=== PATIENT | male | born 1935 | race Caucasian/White ===

== ENCOUNTER 2016-09-18 09:52 | Emergency (ER) | payer MEDICARE ==
[2016-09-18 10:40] VITALS: BP 161/59
--- NOTE | 2016-09-18 10:57 | UC ---
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 Has had balance difficulties since CVA now with frequent falls his PMD has ordered PT fell backwards landing on buttock about 4 days ago initially had a painful "lump" now with bruising which has been extensive no back/neck or head pain - History Of Current Complaint Chief Complaint: UCGeneralIllness Stated Complaint: PT FELL 09/14 HAS SEVERE BRUISING Time Seen by Provider: 09/18/16 10:40 Hx Obtained From: Patient Onset/Duration: Sudden Onset, Lasting Days Timing: Constant Severity Initially: Moderate Severity Currently: Mild Pain Intensity: 2 Pain Scale Used: 0-10 Numeric Location: Discrete At: - left buttock Character Of Pain: Dull, Aching Aggravating Factor(s): Other - touch Alleviating Factor(s): Rest Associated Signs And Symptoms: Positive: Swelling, Bruising - Allergies/Home Medications Allergies/Adverse Reactions: Allergies Allergy/AdvReac Type Severity Reaction Status Date / Time Adhesive Tape Allergy RED RASH Verified 09/18/16 10:22 Home Medications: Home Medications Aspirin Low Dose CHEW TAB* [Aspirin Low Dose TAB*] 81 mg PO DAILY 09/18/16 [ History Confirmed 09/18/16] Calcium Carbonate-Vitamin D [Calcium 600 + D] 1 tab PO BID 09/18/16 [History Confirmed 09/18/16] Glimepiride (NF) 2 mg PO BID 09/18/16 [History Confirmed 09/18/16] Hydrochlorothiazide TAB* [Hydrodiuril TAB*] 12.5 mg PO BID 09/18/16 [History Confirmed 09/18/16] Insulin GLARGINE(*) [Lantus(*)] 20 units SUBCUT ONCE 09/18/16 [History Confirmed 09/18/16] Labetalol TAB* [Trandate TAB*] 300 mg PO BID 09/18/16 [History Confirmed ] Lisinopril TAB* [Prinivil TAB*] 40 mg PO DAILY 09/18/16 [History Confirmed 09/18] Lovastatin(NF) [Mevacor(NF)] 40 mg PO BID 09/18/16 [History Confirmed 09/18/16] Multiple Vitamins W/ Minerals [Icaps Areds 2] 1 cap PO BID 09/18/16 [History Confirmed 09/18/16] Phenytoin CAP(*) [Dilantin CAP(*)] 100 mg PO QID 09/18/16 [History Confirmed ] Psyllium W/ Calcium [Metamucil Plus Calcium] 1 cap PO DAILY 09/18/16 [History Confirmed 09/18/16] Sertraline* [Zoloft*] 25 mg PO DAILY 09/18/16 [History Confirmed 09/18/16] amLODIPine TAB* [Norvasc 5 mg TAB*] 5 mg PO BID 09/18/16 [History Confirmed ] metFORMIN* [Glucophage 500 MG TAB *] 500 mg PO TID 09/18/16 [History Confirmed 09/18/16] PMH/Surg Hx/FS Hx/Imm Hx Endocrine History Of: Reports: Diabetes Cardiovascular History Of: Reports: Cardiac Disorders, Hypertension Neurological History Of: Reports: CVA, Seizures - SEIZURE X1 1981 - Surgical History Surgical History: Yes Surgery Procedure, Year, and Place: TURP, 2004. APPENDECTOMY, 1943, [facility]. BLADDER STONE 1983, [facility]. LASER TO PROSTATE, [facility]. SKIN CANCER 2113 TO ARM AND EAR. GROWTH TO LEFT KNEE H[place] 2007 - Family History Known Family History: Positive: Hypertension, Other - cva - Social History Alcohol Use: None Substance Use Type: None Smoking Status (MU): Former Smoker Amount Used/How Often: PACK A DAY Length of Time of Smoking/Using Tobacco: 20 Years Have You Smoked in the Last Year: No When Did the Patient Quit Smoking/Using Tobacco: 1972 Review of Systems Constitutional: Negative Skin: Bruising Eyes: Negative ENT: Negative Respiratory: Negative Cardiovascular: Negative Gastrointestinal: Negative Genitourinary: Negative Motor: Negative Neurovascular: Negative Musculoskeletal: Myalgia Neurological: Negative Psychological: Negative All Other Systems Reviewed And Are Negative: Yes Physical Exam Triage Information Reviewed: Yes Appearance: Well-Appearing, No Pain Distress, Well-Nourished Vital Signs: Initial Vital Signs Temp 98.1 F 09/18/16 10:18 Pulse 56 09/18/16 10:18 Resp 16 09/18/16 10:18 BP 161/59 09/18/16 10:18 Pulse Ox 100 09/18/16 10:18 Vital Signs Reviewed: Yes Eyes: Positive: Conjunctiva Clear ENT: Negative: Hearing grossly normal, Pharynx normal, Nasal congestion, Nasal drainage, Tonsillar swelling, Tonsillar exudate Neck: Positive: Supple, Nontender, No Lymphadenopathy Respiratory: Positive: Lungs clear, Normal breath sounds, No respiratory distress, No accessory muscle use Cardiovascular: Positive: RRR Abdominal Exam: Normal Abdomen Description: Positive: No Organomegaly. Negative: CVA Tenderness (R), CVA Tenderness (L) Musculoskeletal: Positive: Other: - left arm contractures/left hemiplegia Neurological: Positive: Alert, Other: Psychological Exam: Normal Skin Exam: Normal Hip Injury Course/Dx - Differential Dx/Diagnosis Provider Diagnoses: left buttock hematoma Discharge - Discharge Plan Condition: Stable Disposition: HOME Patient Education Materials: Hematoma (ED) Referrals: Jb Jimenez MD [Primary Care Provider] - If Needed Additional Instructions: pelvis XR showed no fracture I suspect your bruising will spread Images Front/Back of Body, Lg ([place]): 1 - ecchymosis 2 - resolving hematoma
--- NOTE | 2016-09-18 11:11 | RAD ---
Indication: Pelvis injury. Single view of the pelvis demonstrates no definite fracture. Evaluation of the sacroiliac joints is limited. There may be ankylosis or degenerative changes noted. IMPRESSION: No definite fracture of the pelvis is noted although there is suggestion of ankylosis or degenerative changes of the sacroiliac joints.
== END 2016-09-18 11:39 | disposition home or self-care (01) ==
LOC: UCCORT 09:52
DX: S30.0XXA Contusion of lower back and pelvis, initial encounter (principal); W19.XXXA Unspecified fall, initial encounter; Z91.81 History of falling; Y93.9 Activity, unspecified; Y92.9 Unspecified place or not applicable; E11.9 Type 2 diabetes mellitus without complications; Z79.4 Long term (current) use of insulin; I63.9 Cerebral infarction, unspecified; G81.94 Hemiplegia, unspecified affecting left nondominant side; I10 Essential (primary) hypertension; Z87.891 Personal history of nicotine dependence
CPT/HCPCS: 72170; 99212; G0463